=== PATIENT | female | born 1960 | race Caucasian/White ===

== ENCOUNTER 2016-10-02 16:55 | Emergency (ER) | payer MEDICARE, MEDICAID ==
[2016-10-02 18:05] LABS: BASOPHILS 0.6 % (0.0-2.0); EOSINOPHILS 2.8 % (0-7); HEMATOCRIT 35.7 % (36.0-48.0); HEMOGLOBIN 11.3 g/dL (12-16); IMMATURE GRANULOCYTES 0.1 % (0-5); LYMPHOCYTES 22.9 % (15-50); MCH 27.5 pg (26.0-34.0); MCHC 31.7 g/dL (31.0-37.0); MCV 86.9 fL (80.0-100.0); MEAN PLATELET VOLUME 12.2 fL (7.4-10.4); MONOCYTES 8.2 % (2-11); NEUTROPHILS 65.4 % (40-80); PLATELET COUNT 177 10x3/uL (130-400); RBC 4.11 10x6/uL (4.00-5.40); RDW 16.4 % (11.5-14.5); WBC 7.2 10x3/uL (4.8-10.8)
[2016-10-02 18:26] LABS: ALBUMIN 3.7 g/dL (3.4-5.0); ANION GAP 13.2 mmol/L (8-16); BILIRUBIN - TOTAL 0.28 mg/dL (0.2-1.3); CALCIUM 9.2 mg/dL (8.5-10.1); CARBON DIOXIDE 28.9 mmol/L (21.0-32.0); CREATININE - SERUM 1.3 mg/dL (0.6-1.3); POTASSIUM - SERUM 4.1 mmol/L (3.5-5.1)
[2016-10-02 20:42] LABS: APPEARANCE HAZY (CLEAR); COLOR YELLOW (YELLOW)
[2016-10-02 20:43] LABS: BACTERIA MANY /hpf (NONE SEEN); BILIRUBIN NEGATIVE (NEGATIVE); EPITHELIAL CELLS NSEEN /hpf (0-5); GLUCOSE NEGATIVE (NEGATIVE); KETONE NEGATIVE (NEGATIVE); LEUKOCYTE ESTERASE TRACE (NEGATIVE); NITRITE POSITIVE (NEGATIVE); PROTEIN NEGATIVE (NEGATIVE); RED CELLS - URINE NONE SEEN /hpf (0-5); UROBILINOGEN NORMAL (NORMAL); WHITE CELLS - URINE 0-5 /hpf (0-5)
[2016-10-02 20:47] LABS: UDS - AMPHET NEGATIVE QUAL (NEGATIVE); UDS - BARB NEGATIVE QUAL (NEGATIVE); UDS - BENZO POSITIVE QUAL (NEGATIVE); UDS - COCAINE NEGATIVE QUAL (NEGATIVE); UDS - METH NEGATIVE QUAL (NEGATIVE); UDS - OPIATE POSITIVE QUAL (NEGATIVE); UDS - PCP NEGATIVE QUAL (NEGATIVE); UDS - THC NEGATIVE QUAL (NEGATIVE)
== END 2016-10-03 02:42 | disposition home or self-care (01) ==
LOC: D.ER 16:55
PROVIDERS: Emergency Medicine
DX: M54.9 Dorsalgia, unspecified (principal); F32.9 Major depressive disorder, single episode, unspecified; G89.29 Other chronic pain

== ENCOUNTER 2017-01-07 13:03 | Emergency (ER) | payer MEDICARE | END 2017-01-07 15:16 | disposition home or self-care (01) | LOC: D.ER 13:03 | DX: M54.5 Low back pain (principal); F17.200 Nicotine dependence, unspecified, uncomplicated ==

== ENCOUNTER 2017-01-28 09:44 | Emergency (ER) | payer MEDICARE | END 2017-01-28 11:50 | disposition home or self-care (01) | LOC: D.ER 09:44 | DX: M25.50 Pain in unspecified joint (principal); M19.90 Unspecified osteoarthritis, unspecified site; G89.29 Other chronic pain ==

== ENCOUNTER 2017-02-05 10:20 | Emergency (ER) | payer MEDICARE | END 2017-02-05 11:42 | disposition home or self-care (01) | LOC: D.ER 10:20 | DX: M54.5 Low back pain (principal); F17.200 Nicotine dependence, unspecified, uncomplicated ==

== ENCOUNTER 2017-02-07 12:08 | Emergency (ER) | payer MEDICARE | END 2017-02-07 14:30 | disposition home or self-care (01) | LOC: D.ER 12:08 | DX: G89.29 Other chronic pain (principal); F17.200 Nicotine dependence, unspecified, uncomplicated; M54.9 Dorsalgia, unspecified; M79.1 Myalgia ==

== ENCOUNTER 2017-02-18 09:27 | Emergency (ER) | payer MEDICARE | END 2017-02-18 10:50 | disposition home or self-care (01) | LOC: D.ER 09:27 | DX: M54.5 Low back pain (principal); M54.30 Sciatica, unspecified side ==

== ENCOUNTER 2017-02-25 11:21 | Emergency (ER) | payer MEDICARE | END 2017-02-25 13:10 | disposition home or self-care (01) | LOC: D.ER 11:21 | DX: M54.5 Low back pain (principal); F17.200 Nicotine dependence, unspecified, uncomplicated ==

== ENCOUNTER 2017-03-08 12:25 | Emergency (ER) | payer MEDICARE | END 2017-03-08 13:58 | disposition home or self-care (01) | LOC: D.ER 12:25 | DX: M54.5 Low back pain (principal) ==

== ENCOUNTER 2017-03-16 18:55 | Inpatient (IN) | payer MEDICARE ==
[2017-03-16] VITALS (10 sets, daily range): BP systolic 91–129; BP diastolic 64–88; Ht 167.6 cm; Wt 112.8 kg
[~2017-03-16] VITALS: Ht 167.6 cm; Wt 112.8 kg
[2017-03-16 19:48] LABS: BASOPHILS 0.2 % (0-2); EOSINOPHILS 1.5 % (0-7); HEMATOCRIT 36.7 % (36.0-48.0); HEMOGLOBIN 11.8 g/dL (12-16); IMMATURE GRANULOCYTES 0.8 % (0-5); LYMPHOCYTES 13.2 % (15-50); MCH 29.3 pg (26.0-34.0); MCHC 32.2 g/dL (31.0-37.0); MCV 91.1 fL (80.0-100.0); MEAN PLATELET VOLUME 11.2 fL (7.4-10.4); MONOCYTES 5.7 % (2-11); NEUTROPHILS 78.6 % (40-80); PLATELET COUNT 186 10x3/uL (130-400); RBC 4.03 10x6/uL (4.00-5.40); RDW 16.2 % (11.5-14.5); WBC 16.1 10x3/uL (4.8-10.8)
[2017-03-16 19:59] LABS: APPEARANCE SLT CLOUDY (CLEAR); COLOR DK YELLOW (YELLOW); LEUKOCYTE ESTERASE TRACE (NEGATIVE); NITRITE POSITIVE (NEGATIVE); PROTEIN NEGATIVE (NEGATIVE); SPECIFIC GRAVITY 1.015 (1.005-1.020)
[2017-03-16 20:00] LABS: BILIRUBIN NEGATIVE (NEGATIVE); GLUCOSE NEGATIVE (NEGATIVE); KETONE NEGATIVE (NEGATIVE); UROBILINOGEN NORMAL (NORMAL)
[2017-03-16 20:03] LABS: RED CELLS - URINE OCC /hpf (0-5); WHITE CELLS - URINE 0-5 /hpf (0-5)
[2017-03-16 20:04] LABS: BACTERIA MANY /hpf (NONE SEEN)
[2017-03-16 20:09] LABS: UDS - AMPHET NEGATIVE QUAL (NEGATIVE); UDS - BARB NEGATIVE QUAL (NEGATIVE); UDS - BENZO POSITIVE QUAL (NEGATIVE); UDS - COCAINE NEGATIVE QUAL (NEGATIVE); UDS - METH NEGATIVE QUAL (NEGATIVE); UDS - OPIATE POSITIVE QUAL (NEGATIVE); UDS - PCP NEGATIVE QUAL (NEGATIVE); UDS - THC NEGATIVE QUAL (NEGATIVE)
[2017-03-16 20:12] LABS: ALBUMIN 3.8 g/dL (3.4-5.0); ANION GAP 13.6 mmol/L (8-16); BILIRUBIN - TOTAL 0.69 mg/dL (0.2-1.3); CALCIUM 8.3 mg/dL (8.5-10.1); CARBON DIOXIDE 27.8 mmol/L (21.0-32.0); CREATININE - SERUM 2.4 mg/dL (0.6-1.3); POTASSIUM - SERUM 4.4 mmol/L (3.5-5.1); PROTEIN - SERUM 6.6 g/dL (6.4-8.2)
--- NOTE | 2017-03-16 20:40 | NUR ---
PT RECVD TO ROOM 2305 VIA STRETCHER. AWAKE, LETHARGIC. ORIENTED. RESP SHALLOW, LUNGS CTA. DIM IN BASES. SPO2 98% ON O2 AT 2 LPM. SR ON THE MONITOR. RIGHT PIV PATENT AND INFUSING. ABD SOFT, BSA X4. F/C PATENT WITH YORDY UOP. REPORTS CHRONIC BACK OAIN. AFEBRILE. ORIENTED TO CALL LIGHT AND ICU. AT BEDSIDE. ADMISSION HX AND ASSMNT COMPLETED. SEE FLOWSHEETS. CONT CURRENT POC.
--- NOTE | 2017-03-16 23:00 | NUR ---
PT REMAINS DROWSZY. SNACK AND PO FLUIDS PROVIDED. VSS. POISON CONTROL UPDATED.
[2017-03-17] VITALS (12 sets, daily range): BP systolic 87–120; BP diastolic 54–101
--- NOTE | 2017-03-17 01:45 | NUR ---
RESTING WITH EYES CLOSED. MILD HYPOTENSION SEEN. PIV INFUSING. SR ON THE MONITOR. OCC PVC. HOB UP. BED ALARM ON. CONT POC.
--- NOTE | 2017-03-17 03:30 | NUR ---
REASSESSMENT COMPLETED. SEE FLOWSHEET FOR ALL FINIDNGS. HYPOTENSIVE WHILE SLEEPING. REMAINS DROWSY. RESP SHALLOW. SR ON THE MONITOR. CONT TO MONITOR.
[2017-03-17 05:27] LABS: BASOPHILS 0.2 % (0-2); EOSINOPHILS 1.1 % (0-7); HEMATOCRIT 34.9 % (36.0-48.0); HEMOGLOBIN 10.9 g/dL (12-16); IMMATURE GRANULOCYTES 0.3 % (0-5); LYMPHOCYTES 10.2 % (15-50); MCH 28.8 pg (26.0-34.0); MCHC 31.2 g/dL (31.0-37.0); MCV 92.1 fL (80.0-100.0); MEAN PLATELET VOLUME 12.2 fL (7.4-10.4); MONOCYTES 9.4 % (2-11); NEUTROPHILS 78.8 % (40-80); PLATELET COUNT 186 10x3/uL (130-400); RBC 3.79 10x6/uL (4.00-5.40); RDW 16.6 % (11.5-14.5); WBC 14.5 10x3/uL (4.8-10.8)
--- NOTE | 2017-03-17 05:30 | NUR ---
AWAKE AND AOX4. DENIES SUICIDAL INTENTIONS/ IDEATIONS. VSS. SR ON THE MONITOR.
[2017-03-17 05:58] LABS: ALBUMIN 3.2 g/dL (3.4-5.0); ANION GAP 11.4 mmol/L (8-16); BILIRUBIN - TOTAL 0.47 mg/dL (0.2-1.3); CALCIUM 8.2 mg/dL (8.5-10.1); CARBON DIOXIDE 29.1 mmol/L (21.0-32.0); POTASSIUM - SERUM 4.5 mmol/L (3.5-5.1)
[2017-03-17] MEDS ORDERED: MACROBID100 MG PO (09:18)
[2017-03-17] MEDS ORDERED: ULTRAM50 MG PO (09:20)
--- NOTE | 2017-03-17 12:10 | NUR ---
F/C REMOVED CATH INTACT, PITER. WELL
--- NOTE | 2017-03-17 12:55 | NUR ---
PIV REMOVED, PITER. WELL, AMBULATED WITHOUT ASSISTANCE WELL, NO NOTED DISTRESS, DISCHARGED TO HOME WITH .
== END 2017-03-17 12:58 | disposition home or self-care (01) | DRG 918 ==
LOC: D.ER 18:55 → D.ICU 19:30
PROVIDERS: Emergency Medicine; ADMIT Family Medicine
PROC: 0T9B70Z Drainage of Bladder with Drainage Device, Via Natural or Artificial Opening (ICD-10-PCS; principal; 2017-03-16)
DX: T40.2X1A Poisoning by other opioids, accidental (unintentional), initial encounter (principal); T42.4X1A Poisoning by benzodiazepines, accidental (unintentional), initial encounter; M06.9 Rheumatoid arthritis, unspecified; M54.9 Dorsalgia, unspecified; G89.29 Other chronic pain; F41.9 Anxiety disorder, unspecified; F32.9 Major depressive disorder, single episode, unspecified; N28.9 Disorder of kidney and ureter, unspecified; I10 Essential (primary) hypertension

== ENCOUNTER 2017-05-08 10:04 | Emergency (ER) | payer MEDICARE ==
[2017-03-16 22:02] VITALS: BMI 40.1
[~2017-05-08 10:04] MED LIST: MACROBID100 MG PO; ULTRAM50 MG PO
== END 2017-05-08 11:05 | disposition home or self-care (01) ==
LOC: D.ER 10:04
DX: G89.4 Chronic pain syndrome (principal); M06.9 Rheumatoid arthritis, unspecified; M62.838 Other muscle spasm; M79.642 Pain in left hand; M79.641 Pain in right hand; M25.562 Pain in left knee; M25.561 Pain in right knee

== ENCOUNTER 2017-06-12 10:52 | Emergency (ER) | payer MEDICARE ==
[2017-03-16 22:02] VITALS: BMI 40.1
== END 2017-06-12 14:40 | disposition home or self-care (01) ==
LOC: D.ER 10:52
DX: M06.9 Rheumatoid arthritis, unspecified (principal); F17.200 Nicotine dependence, unspecified, uncomplicated